=== PATIENT | male | born 1980 | race Hispanic/Latino ===

== ENCOUNTER 2018-03-15 04:26 | Emergency (ER) | payer OTHER ==
[2018-03-15] MEDS ORDERED: MAGNE/ALUM HYDROXD 30 ML UCUP ONE (04:47)
--- NOTE | 2018-03-15 05:07 | EDPHYS ---
Physician Documentation [facility] Name: Blake Howard Age: 37 yrs Sex: Male : 1980 Arrival Date: 03/15/2018 Time: 04:33 Bed 6 Private MD: Russell Maldonado R ED Physician Constantin Boateng HPI: 03/15 05:04 This 37 yrs old Male presents to ER via Ambulatory with complaints of gs Epigastric Pain. 05:04 The patient presents with abdominal pain in the epigastric area. Onset: The gs symptoms/episode began/occurred yesterday, at 10:00. The symptoms do not radiate. Associated signs and symptoms: Pertinent positives: diarrhea, Pertinent negatives: nausea and vomiting, chest pain. The symptoms are described as crampy. Modifying factors: The symptoms are alleviated by nothing, the symptoms are aggravated by nothing. Severity of pain: At its worst the pain was moderate in the emergency department the pain has improved markedly, is a 3 / 10. The patient has experienced similar episodes in the past, a few times. The patient has not recently seen a physician. Historical: - Allergies: 04:54 No Known Allergies; ea - Home Meds: 04:54 None [Active]; ea - PMHx: 04:54 None; ea - PSHx: 04:54 acl repair; ea - Immunization history:: Adult Immunizations up to date. - Social history:: Smoking status: Patient/guardian denies using tobacco. - Ebola Screening: : No symptoms or risks identified at this time. ROS: 05:04 All other systems are negative. gs Exam: 05:04 Head/Face: Normocephalic, atraumatic. Eyes: Pupils equal round and reactive to light, gs extra-ocular motions intact. Lids and lashes normal. Conjunctiva and sclera are non-icteric and not injected. Cornea within normal limits. Periorbital areas with no swelling, redness, or edema. ENT: Nares patent. No nasal discharge, no septal abnormalities noted. Tympanic membranes are normal and external auditory canals are clear. Oropharynx with no redness, swelling, or masses, exudates, or evidence of obstruction, uvula midline. Mucous membranes moist. Neck: Trachea midline, no thyromegaly or masses palpated, and no cervical lymphadenopathy. Supple, full range of motion without nuchal rigidity, or vertebral point tenderness. No Meningismus. Chest/axilla: Normal chest wall appearance and motion. Nontender with no deformity. No lesions are appreciated. Cardiovascular: Regular rate and rhythm with a normal S1 and S2. No gallops, murmurs, or rubs. Normal PMI, no JVD. No pulse deficits. Respiratory: Lungs have equal breath sounds bilaterally, clear to auscultation and percussion. No rales, rhonchi or wheezes noted. No increased work of breathing, no retractions or nasal flaring. Back: No spinal tenderness. No costovertebral tenderness. Full range of motion. Skin: Warm, dry with normal turgor. Normal color with no rashes, no lesions, and no evidence of cellulitis. MS/ Extremity: Pulses equal, no cyanosis. Neurovascular intact. Full, normal range of motion. Neuro: Awake and alert, GCS 15, oriented to person, place, time, and situation. Cranial nerves II-XII grossly intact. Motor strength 5/5 in all extremities. Sensory grossly intact. Cerebellar exam normal. Normal gait. 05:04 Constitutional: The patient appears alert, awake. 05:04 Abdomen/GI: Palpation: mild abdominal tenderness, in the epigastric area, rebound tenderness, is not appreciated. Vital Signs: 04:40 BP 127 / 39; Pulse 90; Resp 18; Temp 98(O); Pulse Ox 99% on R/A; Weight 92.99 kg; ea Height 5 ft. 8 in. (172.72 cm); Pain 7/10; 04:45 BP 119 / 77; Pulse 88; Resp 18; Pulse Ox 99% on R/A; ea 05:10 BP 120 / 68; Pulse 80; Resp 18 S; Temp 98(O); Pulse Ox 99% on R/A; Pain 3/10; ea 04:40 Body Mass Index 31.17 (92.99 kg, 172.72 cm) ea MDM: 04:44 Patient medically screened. gs 05:04 Differential diagnosis: gastritis, gastroesophageal reflux disease, non-specific abd gs pain. Data reviewed: vital signs, nurses notes. Administered Medications: 04:48 Drug: Maalox Suspension (200 mg-200 mg-20 mg/5 mL) 30 ml Route: PO; ea 05:10 Follow up: Response: No adverse reaction; Marked relief of symptoms ea Disposition: 03/15/18 05:06 Discharged to Home. Impression: Epigastric pain. - Condition is Stable. - Discharge Instructions: Abdominal Pain, Adult. - Prescriptions for Pepcid 20 mg Oral Tablet - take 1 tablet by ORAL route every 12 hours for 10 days; 60 tablet. - Medication Reconciliation Form, Thank You Letter, Antibiotic Education, Prescription Opioid Use form. - Follow up: Marisabel Hernandez MD; When: 2 - 3 days; Reason: Re-evaluation by your physician. Signatures: Louisa Esquivel RN RN ea Starr, Gregory, MD MD gs Corrections: (The following items were deleted from the chart) :18 05:06 03/15/2018 05:06 Discharged to Home. Impression: Epigastric pain. Condition is ea Stable. Forms are Medication Reconciliation Form, Thank You Letter, Antibiotic Education, Prescription Opioid Use. Follow up: Marisabel Hernandez; When: 2 - 3 days; Reason: Re-evaluation by your physician. gs
--- NOTE | 2018-03-15 05:07 | ER ---
Nurse's Notes [facility] Name: Blake Howard Age: 37 yrs Sex: Male : 1980 Arrival Date: 03/15/2018 Time: 04:33 Bed 6 Private MD: Russell Maldonado R Diagnosis: Epigastric pain Presentation: 03/15 04:40 Presenting complaint: Patient states: Reports yesterday he started having nausea, ea vomiting, diarrhea and epigastric pain. Transition of care: patient was not received from another setting of care. Onset of symptoms was March 15, 2018. Risk Assessment: Do you want to hurt yourself or someone else? Patient reports no desire to harm self or others. Initial Sepsis Screen: Does the patient meet any 2 criteria? No. Patient's initial sepsis screen is negative. Does the patient have a suspected source of infection? No. Patient's initial sepsis screen is negative. Care prior to arrival: None. 04:40 Method Of Arrival: Ambulatory ea 04:40 Acuity: IRENA 4 ea Triage Assessment: 04:40 General: Appears in no apparent distress. Behavior is calm, cooperative, appropriate ea for age. Pain: Complains of pain in epigastric area Pain does not radiate. Pain currently is 6 out of 10 on a pain scale. Quality of pain is described as dull. EENT: No signs and/or symptoms were reported regarding the EENT system. Neuro: Level of Consciousness is awake, alert, obeys commands, Oriented to person, place, time, situation. Cardiovascular: Heart tones S1 S2 present Patient's skin is warm and dry. Respiratory: Airway is patent Respiratory effort is even, unlabored, Respiratory pattern is regular, symmetrical, Breath sounds are clear bilaterally. GI: Abdomen is non-distended, Bowel sounds present X 4 quads. GI: Reports diarrhea, epigastric pain, nausea. : No signs and/or symptoms were reported regarding the genitourinary system. Derm: Skin is pink, warm \T\ dry. Musculoskeletal: No signs and/or symptoms reported regarding the musculoskeletal system. Historical: - Allergies: 04:54 No Known Allergies; ea - Home Meds: 04:54 None [Active]; ea - PMHx: 04:54 None; ea - PSHx: 04:54 acl repair; ea - Immunization history:: Adult Immunizations up to date. - Social history:: Smoking status: Patient/guardian denies using tobacco. - Ebola Screening: : No symptoms or risks identified at this time. Screenin:58 Abuse screen: Denies threats or abuse. Nutritional screening: No deficits noted. ea Tuberculosis screening: No symptoms or risk factors identified. Fall Risk None identified. Assessment: 05:16 Reassessment: Patient and/or family updated on plan of care and expected duration. Pain ea level reassessed. Patient is alert, oriented x 3, equal unlabored respirations, skin warm/dry/pink. Discharge instruction given to patient, verbalized the understanding of instruction. Patient states feeling better. Patient states symptoms have improved. Vital Signs: 04:40 BP 127 / 39; Pulse 90; Resp 18; Temp 98(O); Pulse Ox 99% on R/A; Weight 92.99 kg; ea Height 5 ft. 8 in. (172.72 cm); Pain 7/10; 04:45 BP 119 / 77; Pulse 88; Resp 18; Pulse Ox 99% on R/A; ea 05:10 BP 120 / 68; Pulse 80; Resp 18 S; Temp 98(O); Pulse Ox 99% on R/A; Pain 3/10; ea 04:40 Body Mass Index 31.17 (92.99 kg, 172.72 cm) ea ED Course: 04:33 Patient arrived in ED. am2 04:33 Russell Maldonado MD is Private Physician. am2 04:40 Patient has correct armband on for positive identification. Bed in low position. Call ea light in reach. Side rails up X 1. 04:40 Arm band placed on right wrist. Patient placed in an exam room, on a stretcher, on ea pulse oximetry. 04:44 Constantin Boateng MD is Attending Physician. gs 04:44 Louisa Esquivel RN is Primary Nurse. ea 04:53 Triage completed. ea 05:06 Marisabel Hernandez MD is Referral Physician. gs 05:12 No provider procedures requiring assistance completed. Patient did not have IV access ea during this emergency room visit. Administered Medications: 04:48 Drug: Maalox Suspension (200 mg-200 mg-20 mg/5 mL) 30 ml Route: PO; ea 05:10 Follow up: Response: No adverse reaction; Marked relief of symptoms ea Outcome: 05:06 Discharge ordered by . gs 05:16 Condition: improved ea 05:16 Discharge instructions given to patient, Instructed on discharge instructions, follow up and referral plans. medication usage, Demonstrated understanding of instructions, follow-up care, medications, Prescriptions given X 1. 05:17 Discharged to home ambulatory. ea 05:18 Patient left the ED. ea Signatures: Jessica Oseguera am2 Louisa Esquivel RN RN ea Starr, Gregory, MD MD
== END 2018-03-15 05:18 | disposition home or self-care (01) ==
LOC: ER 04:26
DX: R10.13 Epigastric pain (principal)
CPT/HCPCS: 99283

== ENCOUNTER 2021-03-29 20:30 | Emergency (ER) | payer OTHER, SELFPAY ==
--- NOTE | 2021-03-29 22:48 | EDPHYS ---
Physician Documentation [facility] Name: Blake Howard Age: 40 yrs Sex: Male : 1980 Arrival Date: 03/29/2021 Time: 20:33 Bed 13 Private MD: Russell Maldonado R ED Physician Rufino Garrido HPI: 03/29 21:25 This 40 yrs old Male presents to ER via Ambulatory with complaints of COVID ronit TEST. 21:25 The patient has shortness of breath at rest. Onset: The symptoms/episode began/occurred ronit 4 day(s) ago. Duration: The symptoms are continuous, and are steadily getting worse. The patient's shortness of breath has no apparent modifying factors. Associated signs and symptoms: The patient has no apparent associated signs or symptoms. Severity of symptoms: At their worst the symptoms were mild in the emergency department the symptoms are unchanged. The patient has not experienced similar symptoms in the past. Historical: - Allergies: 21:57 No Known Allergies; jm8 - Home Meds: 21:57 None [Active]; jm8 - PMHx: 21:57 None; jm8 - PSHx: 21:57 None; jm8 - Immunization history:: Adult Immunizations up to date. - Family history:: not pertinent. - Social history:: Smoking status: unknown. ROS: 21:26 Constitutional: Negative for fever, chills, and weight loss, Eyes: Negative for injury, ronit pain, redness, and discharge, ENT: Negative for injury, pain, and discharge, Neck: Negative for injury, pain, and swelling, Cardiovascular: Negative for chest pain, palpitations, and edema, Abdomen/GI: Negative for abdominal pain, nausea, vomiting, diarrhea, and constipation, Back: Negative for injury and pain, : Negative for injury, bleeding, discharge, and swelling, MS/Extremity: Negative for injury and deformity, Skin: Negative for injury, rash, and discoloration, Neuro: Negative for headache, weakness, numbness, tingling, and seizure, Psych: Negative for depression, anxiety, suicide ideation, homicidal ideation, and hallucinations, Allergy/Immunology: Negative for hives, rash, and allergies, Endocrine: Negative for neck swelling, polydipsia, polyuria, polyphagia, and marked weight changes, Hematologic/Lymphatic: Negative for swollen nodes, abnormal bleeding, and unusual bruising. 21:26 Respiratory: Positive for shortness of breath, at rest. Exam: 21:26 Constitutional: This is a well developed, well nourished patient who is awake, alert, ronit and in no acute distress. Head/Face: Normocephalic, atraumatic. Eyes: Pupils equal round and reactive to light, extra-ocular motions intact. Lids and lashes normal. Conjunctiva and sclera are non-icteric and not injected. Cornea within normal limits. Periorbital areas with no swelling, redness, or edema. ENT: Nares patent. No nasal discharge, no septal abnormalities noted. Tympanic membranes are normal and external auditory canals are clear. Oropharynx with no redness, swelling, or masses, exudates, or evidence of obstruction, uvula midline. Mucous membranes moist. Neck: Trachea midline, no thyromegaly or masses palpated, and no cervical lymphadenopathy. Supple, full range of motion without nuchal rigidity, or vertebral point tenderness. No Meningismus. Chest/axilla: Normal chest wall appearance and motion. Nontender with no deformity. No lesions are appreciated. Cardiovascular: Regular rate and rhythm with a normal S1 and S2. No gallops, murmurs, or rubs. Normal PMI, no JVD. No pulse deficits. Respiratory: Lungs have equal breath sounds bilaterally, clear to auscultation and percussion. No rales, rhonchi or wheezes noted. No increased work of breathing, no retractions or nasal flaring. Abdomen/GI: Soft, non-tender, with normal bowel sounds. No distension or tympany. No guarding or rebound. No evidence of tenderness throughout. Back: No spinal tenderness. No costovertebral tenderness. Full range of motion. Male : Normal genitalia with no discharge or lesions. Skin: Warm, dry with normal turgor. Normal color with no rashes, no lesions, and no evidence of cellulitis. MS/ Extremity: Pulses equal, no cyanosis. Neurovascular intact. Full, normal range of motion. Neuro: Awake and alert, GCS 15, oriented to person, place, time, and situation. Cranial nerves II-XII grossly intact. Motor strength 5/5 in all extremities. Sensory grossly intact. Cerebellar exam normal. Normal gait. Psych: Awake, alert, with orientation to person, place and time. Behavior, mood, and affect are within normal limits. 21:26 Musculoskeletal/extremity: DVT Exam: No signs of deep vein thrombosis. no pain, no swelling, no tenderness, negative Homans' sign noted on exam, no appreciated bluish discoloration, no erythema, no increased warmth. Vital Signs: 20:39 BP 148 / 90; Pulse 87; Resp 18; Temp 98.9; Pulse Ox 100% ; Weight 90.26 kg; Height 5 ak2 ft. 5 in. (165.10 cm); 20:39 Body Mass Index 33.11 (90.26 kg, 165.10 cm) ak2 MDM: 20:43 Patient medically screened. ronit 21:27 Differential diagnosis: CHF exacerbation, Chronic Obstructive Pulmonary Disease ronit pulmonary edema. Antibiotic administration: The patient is discharged and will get outpatient antibiotics, Zithromax. The patient's Wells Deep Vein Thrombosis Score was calculated as follows: Total Score: 0-2 Pts- Low Risk. The patient's pulmonary embolism risk score was calculated as follows: Total Score: 0-2 points. This patient was found to be at low risk for a pulmonary embolism by using the Well's assessment criteria. Immunization status:. Data reviewed: vital signs, nurses notes, lab test result(s), radiologic studies, plain films. Data interpreted: monitoring coordinator: rate is 87 beats/min, rhythm is regular, Pulse oximetry: on room air is 100 %. Test interpretation: by ED physician or midlevel provider: plain radiologic studies. Counseling: I had a detailed discussion with the patient and/or guardian regarding: the historical points, exam findings, and any diagnostic results supporting the discharge/admit diagnosis, lab results, radiology results, the need for outpatient follow up, for definitive care, a family practitioner. 03/29 22:19 Order name: SARS-COV-2 RT PCR; Complete Time: 22:45 EDMS 03/29 21:25 Order name: Chest Single View XRAY ronit Administered Medications: No medications were administered Disposition: 03/29/21 22:47 Discharged to Home. Impression: Dyspnea, Contact with and (suspected) exposure to other viral communicable diseases - covid. - Condition is Stable. - Discharge Instructions: Shortness of Breath, Shortness of Breath, [id number], Aspirin and Your Heart, COVID-19. - Prescriptions for Zithromax Z- Adeel 250 mg Oral Tablet - take 1 tablet by ORAL route as directed for 5 days Day 1 - take two (2) tablets one time. Day 2, 3, 4 , 5 take one (1) tablet once daily.; 6 tablet. Medrol (Adeel) 4 mg Oral Tablets, Dose Pack - take 1 tablet by ORAL route as directed - follow package instructions; 1 packet. - Medication Reconciliation Form, Thank You Letter, Antibiotic Education, Prescription Opioid Use form. - Follow up: Russell Maldonado MD; When: 2 - 3 days; Reason: Recheck today's complaints, Continuance of care, Re-evaluation by your physician. - Problem is new. - Symptoms have improved. Signatures: Dispatcher [employer] [facility] Rufino Garrido MD MD cha Munoz, Edgar, RN RN em Teo Muniz RN RN jm8 Corrections: (The following items were deleted from the chart) 21:21 20:46 CORONAVIRUS+MR.LAB.BRZ ordered. [facility] 23:02 22:47 03/29/2021 22:47 Discharged to Home. Impression: Dyspnea; Contact with and em (suspected) exposure to other viral communicable diseases - covid. Condition is Stable. Forms are Medication Reconciliation Form, Thank You Letter, Antibiotic Education, Prescription Opioid Use. Follow up: Russell Maldonado; When: 2 - 3 days; Reason: Recheck today's complaints, Continuance of care, Re-evaluation by your physician. Problem is new. Symptoms have improved. ronit
--- NOTE | 2021-03-29 22:48 | ER ---
Nurse's Notes [facility] Name: Blake Howard Age: 40 yrs Sex: Male : 1980 Arrival Date: 03/29/2021 Time: 20:33 Bed 13 Private MD: Russell Maldonado R Diagnosis: Dyspnea;Contact with and (suspected) exposure to other viral communicable diseases-covid Presentation: 03/29 20:39 Chief complaint: Patient states: exposure to covid x4. Coronavirus screen: Client ak2 denies travel out of the [place] in the last 14 days. At this time, the client does not indicate any symptoms associated with coronavirus-19. Ebola Screen: Patient negative for fever greater than or equal to 101.5 degrees Fahrenheit, and additional compatible Ebola Virus Disease symptoms Patient denies exposure to infectious person. Patient denies travel to an Ebola-affected area in the 21 days before illness onset. No symptoms or risks identified at this time. Initial Sepsis Screen: Does the patient meet any 2 criteria? No. Patient's initial sepsis screen is negative. Does the patient have a suspected source of infection? No. Patient's initial sepsis screen is negative. Risk Assessment: Do you want to hurt yourself or someone else? Patient reports no desire to harm self or others. Onset of symptoms. 20:39 Method Of Arrival: Ambulatory ak2 20:39 Acuity: IRENA 4 ak2 Triage Assessment: 20:39 General: Appears in no apparent distress. Behavior is calm, cooperative. Pain: Denies ak2 pain. Historical: - Allergies: 21:57 No Known Allergies; jm8 - Home Meds: 21:57 None [Active]; jm8 - PMHx: 21:57 None; jm8 - PSHx: 21:57 None; jm8 - Immunization history:: Adult Immunizations up to date. - Family history:: not pertinent. - Social history:: Smoking status: unknown. Screenin:56 Abuse screen: Denies threats or abuse. Denies injuries from another. Nutritional jm8 screening: No deficits noted. Tuberculosis screening: No symptoms or risk factors identified. Fall Risk None identified. Assessment: 21:55 General: Appears in no apparent distress. comfortable, Behavior is calm, cooperative, jm8 appropriate for age. Pain: Denies pain. Neuro: No deficits noted. Level of Consciousness is awake, alert, obeys commands, Oriented to person, place, time. Cardiovascular: No deficits noted. Respiratory: Reports shortness of breath on exertion Airway is patent Trachea midline Respiratory effort is even, unlabored, Respiratory pattern is regular, symmetrical. GI: No deficits noted. No signs and/or symptoms were reported involving the gastrointestinal system. : No deficits noted. No signs and/or symptoms were reported regarding the genitourinary system. EENT: No deficits noted. No signs and/or symptoms were reported regarding the EENT system. Derm: No deficits noted. No signs and/or symptoms reported regarding the dermatologic system. Musculoskeletal: No deficits noted. No signs and/or symptoms reported regarding the musculoskeletal system. Vital Signs: 20:39 BP 148 / 90; Pulse 87; Resp 18; Temp 98.9; Pulse Ox 100% ; Weight 90.26 kg; Height 5 ak2 ft. 5 in. (165.10 cm); 20:39 Body Mass Index 33.11 (90.26 kg, 165.10 cm) ak2 ED Course: 20:33 Patient arrived in ED. am4 20:33 Russlel Maldonado MD is Private Physician. am4 20:41 Triage completed. ak2 20:43 Rufino Garrido MD is Attending Physician. ronit 21:56 Patient has correct armband on for positive identification. Side rails up X2. Bed in jm8 low position. Call light in reach. 21:57 Arm band placed on right wrist. jm8 22:01 Chest Single View XRAY In Process Unspecified. EDMS 22:46 Russell Maldonado MD is Referral Physician. ronit 23:02 No provider procedures requiring assistance completed. Patient did not have IV access em during this emergency room visit. Administered Medications: No medications were administered Outcome: 22:47 Discharge ordered by . ronit 23:02 Discharged to home ambulatory. em 23:02 Condition: stable 23:02 Discharge instructions given to patient, Instructed on discharge instructions, follow up and referral plans. medication usage, Demonstrated understanding of instructions, follow-up care, medications, Prescriptions given X 2. 23:02 Patient left the ED. em Signatures: Dispatcher [employer] [facility] Rufino Garrido MD MD cha Munoz, Edgar RN RN em Larisa Adhikari 4 Teo Muniz RN RN [facility] Bruce Milton ak2
[2021-03-29 23:09] VITALS: BP 148/90; TEMP 98.9; O2SAT 100
--- NOTE | 2021-03-30 09:33 | RAD REPORT ---
EXAM DESCRIPTION: RAD - Chest Single View - 03/29/2021 10:01 pm CLINICAL HISTORY: Cough;Dyspnea Chest pain. COMPARISON: Chest Pa And Lat (2 Views) dated 08/05/2017 FINDINGS: Portable technique limits examination quality. The lungs are grossly clear. The heart is normal in size. No displaced fractures. IMPRESSION: No acute intrathoracic process suspected.
== END 2021-03-29 23:02 | disposition home or self-care (01) ==
LOC: ER 20:30
DX: R06.00 Dyspnea, unspecified (principal); Z20.822 Contact with and (suspected) exposure to COVID-19
CPT/HCPCS: 71045; U0003; 99283

== ENCOUNTER 2021-12-12 13:22 | Observation (INO) | payer SELFPAY ==
--- OUTSIDE RECORDS SUMMARY | 2021-12-12 13:24 | XMS REPORT | Continuity of Care Document ---
:1980 Author Organization [facility] t Address [address] [place] [address] Care Team Providers Name Role Phone PCP, DOES NOT HAVE A Primary Care Physician Unavailable Nurse, Pob Immunization Attending Clinician Unavailable Adan Rivas DO Attending Clinician ADAN RIVAS Attending Clinician Unavailable Only, Test Attending Clinician Unavailable Gissel CABELLO Attending Clinician GISSEL Attending Clinician Unavailable Doctor Unassigned, Name Attending Clinician Unavailable Tressa ALMAGUER Attending Clinician Unavailable Problems This patient has no known problems. Allergies, Adverse Reactions, Alerts Allergy Allergy Status Severity Reaction(s) Onset Inactive Treating Comm ents Source Name Type Date Date Clinician NO KNOWN Drug Active Univers ALLERGIE Class ity of [facility] Social History Social Habit Start Date Stop Date Quantity Comments Source Exposure to Not sure [facility] SARS-CoV-2 (event) Medica l Branch Sex Assigned At [birth year] [facility] 00:00:00 00:00:00 [facility] Smoking Status Start Date Stop Date Source Unknown if ever smoked [facility] Medications Ordered Filled Start Stop Current Ordering Indication Dosage Frequency Signature Comments Components Source Medication Medication Date Date Medication? Clinician (SIG) Name Name azithromyci Yes 250mg Take 1 Cap Univers n 6-09 by mouth. ity of (ZITH[place] caps the Medical capsule first day, Branch then 1 daily for 4 more days.Total 5 days traMADOL 2010-0 Yes 50mg Take 1 Tab Uni vers (ULTRAM) 50 6-09 by mouth ity of mg tablet 00:00: every 6 [place] 00 (six) Medical hours as Branch needed for Pain. azithromyci 0 Yes 250mg Take 1 Cap Univers n 6-09 by mouth. ity of (ZITHROMAX[place] 250 [place] 00 caps the Medical capsule first day, Branch then 1 daily for 4 more days.Total 5 days traMADOL 0 Yes 50mg Take 1 Tab Uni vers (ULTRAM) 50 6-09 by mouth ity of mg tablet 00:00: every 6 [place] 00 (six) Medical hours as Branch needed for Pain. azithromyci 0 Yes 250mg Take 1 Cap Univers n 6-09 by mouth. ity of (ZITHROMAX[place]:00[place] 250 [place] 00 caps the Medical capsule first day, Branch then 1 daily for 4 more days.Total 5 days traMADOL 0 Yes 50mg Take 1 Tab Uni vers (ULTRAM) 50 6-09 by mouth ity of mg tablet 00:00: every 6 [place] 00 (six) Medical hours as Branch needed for Pain. PROMETHAZIN Yes Take one Un shade E 25 MG 1-14 half ity of ORAL TAB 00:00: tablet [place] 00 every 8 Medical hours as Branch needed for nausea/vom iting PROMETHAZIN Yes Take one Un shade E 25 MG 1-14 half ity of ORAL TAB 00:00: tablet [place] 00 every 8 Medical hours as Branch needed for nausea/vom iting PROMETHAZIN Yes Take one Un shade E 25 MG 1-14 half ity of ORAL TAB 00:00: tablet [place] 00 every 8 Medical hours as Branch needed for nausea/vom iting Immunizations Ordered Filled Immunization Date Status Comments [facility] e Immunization Name Name SARS-COV-2 COVID-19 2021-10-25 Completed Unive rsity of PFIZER VACCINE 00:00:00 [facility] SARS-COV-2 COVID-19 2021-01-30 Completed Unive rsity of PFIZER VACCINE 00:00:00 [facility] SARS-COV-2 COVID-19 2021-01-30 Completed Unive rsity of PFIZER VACCINE 00:00:00 [facility] SARS-COV-2 COVID-19 2021-01-30 Completed Unive rsity of PFIZER VACCINE 00:00:00 [facility] SARS-COV-2 COVID-19 2021-01-09 Completed Unive rsity of PFIZER VACCINE 00:00:00 [facility] SARS-COV-2 COVID-19 2021-01-09 Completed Unive rsity of PFIZER VACCINE 00:00:00 [facility] SARS-COV-2 COVID-19 2021-01-09 Completed Unive rsity of PFIZER VACCINE 00:00:00 [facility] Procedures Procedure Date / Time Performed Performing Clinician Sourc e SARS-COV-2 COVID-19 2021-10-25 21:52:06 Doctor Unassigned, No [facility] [place] VACCINE,0.3ML,IM Name [facility] (PFIZER) ASSIGNMENT OF BENEFITS 2021-09-05 21:10:09 Doctor Unassigned, No [facility] Encounters Start End Encounter Admission Attending Care Care Encounter Source Date/Time Date/Time Type Type Clinicians Facility Department ID 2021-10-25 2021-10-25 Imm/Inj Nurse, Adc Pob Immunization [facility] [id number] Univers 16:00:00 16:00:00 Visit Kali Rivas [id number] [facility] [id number] [facility] [id number] [place] [address] 2021-10-25 2021-10-25 Outpatient R RC [facility] [id number] Univers 16:00:00 15:50:26 KALI moon [facility] 2021-09-05 2021-09-05 Laboratory Only, Vince Test [facility] [id number] Univers 15:06:54 15:21:54 Only Pricilla Kirkland [id number] [facility] [id number] [facility] [id number] [address] 2021-09-05 2021-09-05 Outpatient R GISSEL [facility] [id number] Univers 14:30:00 14:30:00 PRICILLA moon of [facility] 2021-09-05 2021-09-05 Orders Doctor AURELIO [id number] [facility] 00:00:00 00:00:00 Only Unassigned, MATHIEU [id number] ity of [place] [facility] [id number] [place] [id number] [address] 2021-01-09 2021-01-09 Outpatient Nilson ALMAGUER [facility] [id number] [facility] 16:10:00 15:55:10 ALEI moon [facility] Results This patient has no known results.
[2021-12-12] MEDS ORDERED: NA CHLORIDE 0.9% 1,000 ML ONE (14:17)
[2021-12-12 14:23] LABS: Absolute Lymphocytes (CBC) 1.7 K/uL (0.7-4.9); Hematocrit 41.1 % (39.6-49.0); Lymphocytes % 31.6 % (15.3-44.8); MPV 8.1 fL (7.6-11.3); RBC Red Blood Cell Count 4.73 M/uL (4.33-5.43)
--- NOTE | 2021-12-12 14:31 | ER ---
Nurse's Notes [facility] Name: Blake Howard Age: 41 yrs Sex: Male : 1980 Arrival Date: 12/12/2021 Time: 13:24 Bed DIS4 Private MD: Diagnosis: Unspecified acute appendicitis Presentation: 12/12 14:00 Chief complaint: Patient states: he was sent by his PCP for appendicitis. Patient was ap3 sent over after CT imaging confirmed. Patient presents with 22g IV in place to the left AC. patient denies pain at this time. Coronavirus screen: At this time, the client does not indicate any symptoms associated with coronavirus-19. Ebola Screen: No symptoms or risks identified at this time. Initial Sepsis Screen: Does the patient meet any 2 criteria? No. Patient's initial sepsis screen is negative. Does the patient have a suspected source of infection? No. Patient's initial sepsis screen is negative. Risk Assessment: Do you want to hurt yourself or someone else? Patient reports no desire to harm self or others. Onset of symptoms was December 12, 2021. 14:00 Method Of Arrival: Ambulatory ap3 14:00 Acuity: IRENA 3 ap3 Triage Assessment: 14:02 General: Appears in no apparent distress. comfortable, Behavior is calm, cooperative, ap3 appropriate for age. Pain: Complains of pain in right lower quadrant. Neuro: Level of Consciousness is awake, alert, obeys commands, Oriented to person, place, time, situation, Gait is steady, Speech is normal. Cardiovascular: Patient's skin is warm and dry. Respiratory: Airway is patent Respiratory effort is even, unlabored. Historical: - Allergies: 14:02 No Known Allergies; ap3 - Home Meds: 14:02 None [Active]; ap3 - PMHx: 14:02 None; ap3 - Immunization history:: Client reports receiving the 2nd dose of the Covid vaccine, Flu vaccine is not up to date. - Social history:: Smoking status: Patient denies any tobacco usage or history of. Patient uses alcohol, occasionally. Screenin:03 Abuse screen: Denies threats or abuse. Nutritional screening: No deficits noted. ap3 Tuberculosis screening: No symptoms or risk factors identified. 14:16 Fall Risk None identified. ap3 Vital Signs: 14:00 BP 136 / 75; Pulse 68; Resp 16; Temp 97.5; Pulse Ox 100% ; Weight 91.63 kg; Height 5 ap3 ft. 8 in. (172.72 cm); 14:00 Body Mass Index 30.71 (91.63 kg, 172.72 cm) ap3 ED Course: 13:24 Patient arrived in ED. as 13:24 Annabelle Anthony F[facility]-C [facility]. kb 13:24 Laura Byrnes MD is Attending Physician. kb 14:02 Triage completed. ap3 14:03 Arm band placed on right wrist. ap3 14:10 Diet: Patient is NPO. ap3 14:10 Initial lab(s) drawn, by me, sent to lab. COVID swab sent to lab. IV is patent, is ap3 intact, with fluids infusing freely, with good blood return. 14:17 Patient has correct armband on for positive identification. Adult w/ patient. ap3 14:30 Elian Klein MD is Hospitalizing Provider. kb 15:00 No provider procedures requiring assistance completed. Patient admitted, IV remains in ss place. Administered Medications: 14:16 Drug: NS 0.9% 1000 ml Route: IV; Rate: 1000 ml; Site: left antecubital; ap3 15:00 Follow up: IV Status: Infusion continued upon admission ss 15:00 Not Given (admin by OR nursee): Cipro (ciprofloxacin) 400 mg 200 ml IVPB once over 60 ss mins 15:00 Not Given (ADMIN by OR nursee): Flagyl (metroNIDAZOLE) 500 mg 100 ml IVPB at 200 ml/hr ss once over 30 mins Outcome: 14:30 Decision to Hospitalize by Provider. kb 15:00 Admitted to OR accompanied by nurse, family with patient, Report called to MENDEL Blevins ss 15:00 Condition: stable 15:00 Instructed on the need for admit. 15:01 Patient left the ED. ss Signatures: Annabelle Anthony FNP-C FNP-Jina Pantoja Shelby, RN RN Jessica Vasquez RN RN ap3
--- NOTE | 2021-12-12 14:31 | EDPHYS ---
Physician Documentation [facility] Name: Blake Howard Age: 41 yrs Sex: Male : 1980 Arrival Date: 12/12/2021 Time: 13:24 Bed DIS4 Private MD: ED Physician Laura Byrnes HPI: 12/12 14:43 This 41 yrs old Male presents to ER via Ambulatory with complaints of kb appendicitis, ct+. 14:44 The patient presents with abdominal pain right lower quadrant. Onset: The kb symptoms/episode began/occurred 2 week(s) ago. The symptoms do not radiate. Associated signs and symptoms: none. The symptoms are described as constant. Modifying factors: The symptoms are alleviated by nothing, the symptoms are aggravated by nothing. Severity of pain: At its worst the pain was moderate in the emergency department the pain is unchanged. The patient has not experienced similar symptoms in the past. The patient has not recently seen a physician. Pt reports RLQ pain that was intermittent when it started 2 weeks ago and became constant on Saturday. Went to PCP today and was sent for Stat CT. Sent here from CT for appendicitis. Historical: - Allergies: 14:02 No Known Allergies; ap3 - Home Meds: 14:02 None [Active]; ap3 - PMHx: 14:02 None; ap3 - Immunization history:: Client reports receiving the 2nd dose of the Covid vaccine, Flu vaccine is not up to date. - Social history:: Smoking status: Patient denies any tobacco usage or history of. Patient uses alcohol, occasionally. ROS: 14:42 Constitutional: Negative for fever, chills, and weight loss. kb 14:42 Abdomen/GI: Positive for abdominal pain. 14:42 All other systems are negative. Exam: 14:42 Constitutional: This is a well developed, well nourished patient who is awake, alert, kb and in no acute distress. Head/Face: Normocephalic, atraumatic. ENT: Moist Mucous membranes Cardiovascular: Regular rate and rhythm with a normal S1 and S2. No gallops, murmurs, or rubs. No pulse deficits. Respiratory: Respirations even and unlabored. No increased work of breathing. Talking in full sentences Skin: Warm, dry with normal turgor. Normal color. MS/ Extremity: Pulses equal, no cyanosis. Neurovascular intact. Full, normal range of motion. Neuro: Awake and alert, GCS 15, oriented to person, place, time, and situation. Moves all extremities. Normal gait. Psych: Awake, alert, with orientation to person, place and time. Behavior, mood, and affect are within normal limits. 14:42 Abdomen/GI: Inspection: abdomen appears normal, Bowel sounds: normal, Palpation: moderate abdominal tenderness, in the right lower quadrant. Vital Signs: 14:00 BP 136 / 75; Pulse 68; Resp 16; Temp 97.5; Pulse Ox 100% ; Weight 91.63 kg; Height 5 ap3 ft. 8 in. (172.72 cm); 14:00 Body Mass Index 30.71 (91.63 kg, 172.72 cm) ap3 MDM: 13:24 Patient medically screened. kb 14:29 Data reviewed: vital signs, nurses notes. Data interpreted: Pulse oximetry: on room air kb is 100 %. Interpretation: normal. Counseling: I had a detailed discussion with the patient and/or guardian regarding: the historical points, exam findings, and any diagnostic results supporting the discharge/admit diagnosis, lab results, radiology results, the need for further work-up and treatment in the hospital. Physician consultation: Elian Klein MD was contacted at 14:30, regarding admission, to the telemetry unit. patient's condition, and will see patient in OR. 12/12 13:24 Order name: Basic Metabolic Panel kb 12/12 13:24 Order name: CBC with Diff; Complete Time: 14:25 kb 12/12 13:24 Order name: Hepatic Function; Complete Time: 14:42 kb 12/12 13:24 Order name: Lipase; Complete Time: 14:42 kb 12/12 13:25 Order name: Basic Metabolic Panel; Complete Time: 14:42 EDMS 12/12 13:26 Order name: COVID-19 SARS RT PCR (Document "Date of Onset" if Symptomatic) kb 12/12 13:24 Order name: IV Saline Lock; Complete Time: 14:10 kb 12/12 13:24 Order name: Labs collected and sent; Complete Time: 14:10 kb 12/12 13:25 Order name: NPO; Complete Time: 14:04 kb Administered Medications: 14:16 Drug: NS 0.9% 1000 ml Route: IV; Rate: 1000 ml; Site: left antecubital; ap3 15:00 Follow up: IV Status: Infusion continued upon admission ss 15:00 Not Given (admin by OR nursee): Cipro (ciprofloxacin) 400 mg 200 ml IVPB once over 60 ss mins 15:00 Not Given (ADMIN by OR nursee): Flagyl (metroNIDAZOLE) 500 mg 100 ml IVPB at 200 ml/hr ss once over 30 mins Disposition Summary: 12/12/21 14:30 Hospitalization Ordered Hospitalization Status: Observation kb Provider: Elian Klein Location: Telemetry/MedSurg (observation) kb Condition: Stable kb Problem: new kb Symptoms: are unchanged kb Bed/Room Type: Standard kb Room Assignment: kb Diagnosis - Unspecified acute appendicitis kb Forms: - Medication Reconciliation Form kb - SBAR form kb Signatures: Dispatcher [employer] Annabelle Dale FNP-C FNP-Ckb Prokisch, Amanda, RN RN ap3 Zoila Nation RN
[2021-12-12 14:39] LABS: Albumin 3.7 g/dL (3.4-5.0); Bilirubin Direct 0.2 mg/dL (0-0.2); Bilirubin Total 1.2 mg/dL (0.2-1.0); Potassium 3.7 mmol/L (3.5-5.1); Protein, Total 7.7 g/dL (6.4-8.2)
[2021-12-12] MEDS ORDERED: CIPROFLOXACIN 400mg IV 400 MG/200 ML BAG IV ONE (14:55)
[2021-12-12] MEDS ORDERED: METRONIDAZOLE 500mg IVPB 500 MG/100 ML BAG IV ONE (14:55)
[2021-12-12] MEDS ORDERED: propofoL 200 MG/20 ML VIAL IV ONE (15:18)
[2021-12-12] MEDS ORDERED: MIDAZOLAM HCL 2 MG/2 ML INJ ONE (15:19)
[2021-12-12] MEDS ORDERED: FENTANYL CITR 100 MCG/2 ML ONE (15:19)
[2021-12-12] MEDS ORDERED: GLYCOPYRROLATE 0.2 MG/ML SYR ONE (15:20)
[2021-12-12] MEDS ORDERED: NEOSTIGMINE 1 MG/ML -5 ML ONE (15:20)
[2021-12-12] MEDS ORDERED: ONDANSETRON 4 MG/2 ML VIAL ONE (15:20)
[2021-12-12] MEDS ORDERED: LIDOCAINE 2% MPF 5 ML VIAL ONE (15:20)
[2021-12-12] MEDS ORDERED: ROCURONIUM 50 MG/5 ML VIAL IV ONE (15:21)
[2021-12-12] MEDS ORDERED: LIDOCAINE 1% MPF 5 ML VIAL ONE (15:33)
[2021-12-12] MEDS ORDERED: EPHEDRINE SULF 50 MG/ML VIAL ONE (15:55)
[2021-12-12] MEDS ORDERED: ONDANSETRON 4 MG/2 ML VIAL IV PRN ×2 (16:12→16:25)
[2021-12-12] MEDS ORDERED: MORPHINE 4 MG/ML SYR IV PRN (16:12)
--- NOTE | 2021-12-12 16:12 | P.OP ---
Fur Finisher Tailor: Lyssa TORRES Preoperative diagnosis: Acute Appendicitis Postoperative diagnosis: Same Primary procedure: Lap Appy Anesthesia: General Estimated blood loss: min Specimen: Appy Findings: as above Complications: None Transferred to: Recovery Room Condition: Good
[2021-12-12] MEDS: MEPERIDINE HCL 25 MG/ML SYR ONE ×2 (16:22→16:37)
[2021-12-12] MEDS ORDERED: KETOROLAC 30 MG/ML INJ ONE (16:24)
[2021-12-12] MEDS ORDERED: HYDROMORPHONE HCL 1 MG/ML INJ IV PRN (16:25)
[2021-12-12] MEDS ORDERED: HYDROMORPHONE HCL 1 MG/ML INJ ONE (16:41)
[2021-12-12] MEDS ORDERED: NA CHLORIDE 0.9% 500 ML ONE (16:42)
--- NOTE | 2021-12-12 17:59 | PREOPHP ---
Date of Admission: 12/12/2021 Chief Complaint: Abdominal pain. History Of Present Illness: The patient is a 41-year-old gentleman, who had right lower quadrant abd ominal pain approximately 2 weeks ago and treated himself with antibiotics that he got from his frien ds. He denies any nausea, vomiting, or anorexia. No diarrhea or constipation. No dysuria or hematu ramirez. No sore throat, runny nose, cough, headaches, or dizziness. No chest pain. No fever or chills . No anorexia. The patient states that the pain went away after he took the antibiotics, but it cam e back 2 days ago and he went to see his primary care physician as an outpatient. CT scan done, [facility] showed acute appendicitis, uncomplicated. Therefore, the patient was admitted for IV antibiotics a nd an appendectomy. Review of Systems: Otherwise unremarkable Past Medical History: Negative. Past Surgical History: Left knee surgery. Allergies: NO ALLERGIES. Social History: The patient denies smoking. Drinks occasionally. Family History: Noncontributory. Physical Examination: Vital Signs: Stable, afebrile. General: Awake, alert, and oriented x3. Head and neck: Cranial nerves 2 through 12 are grossly within normal limits. No neck masses. No JV D. Throat clear. Neck is supple. Chest: Clear. Heart: S1, S2. Abdomen: Soft, nondistended. Positive bowel sounds. Positive right lower quadrant tenderness with rebound. No rigidity or guarding. Extremity: Adequately perfused. Nontender. Neuro: Nonfocal. Laboratory Data: White count is normal. Electrolytes reviewed. The CT of the abdomen and pelvis re viewed consistent with acute appendicitis. Assessment: Acute appendicitis. Plan: Admit, n.p.o., IV fluid, IV antibiotic, to the OR for lap appy possible open. The patient und erstands the risks, benefits, and alternatives and agrees to procedure. /MODL Voice ID: [id number]
[2021-12-12] MEDS: NA CHLORIDE 0.9% 1,000 ML IV SCH (18:34)
--- NOTE | 2021-12-12 18:38 | OP ---
Date of Procedure: 12/12/2021 Surgeon: Elian Klein MD Pulp Tester: BRIAN Whitney. Preoperative Diagnosis: Acute appendicitis. Postoperative Diagnosis: Acute appendicitis. Procedure: Laparoscopic appendectomy. Estimated Blood Loss: Minimal. Specimen: Appendix. Finding: As above. Anesthesia: General. Complications: None. Disposition: The patient tolerated the procedure in stable condition and taken to Recovery in good g eneral condition. Procedure In Detail: The patient was brought to the OR and placed in supine position. General anest hesia begun. The patient was prepped and draped in usual sterile fashion. Marcaine 0.5% was infiltr ated locally. Then, a 15 blade was used to make a 1 cm supraumbilical midline incision. Subcutaneou s tissue divided. Fascia identified, divided. A #1 Vicryl stay suture was placed. Peritoneal cavit y was entered with sharp and blunt dissection. A 12 mm trocar placed into the peritoneal cavity unde r direct vision. Pneumoperitoneum was established. Then, two 5 mm trocars were placed, 1 in the lef t lower quadrant and 1 in the suprapubic region. Laparoscopy revealed acute suppurative appendicitis with some adhesions. These adhesions taken down with the LigaSure and the base of the appendix and mesoappendix were clearly identified. Endo-DEMI stapling device used to divide both structures. Mini mal oozing noted from the staple line and this was easily controlled with vascular clips. Appendix r etrieved through the umbilicus via an EndoCatch bag and then pneumoperitoneum reestablished and then the right lower quadrant irrigated. Effluent clear. No evidence of bleeding or bowel injury appreci ated. Subsequently, all trocars were removed under direct vision. Stay sutures were tied to each ot her to approximate the fascial defect. Subcutaneous wounds were irrigated. Bleeding controlled with cautery. A 3-0 chromic used to approximate the subcutaneous tissue and close the skin. Sterile tanisha ssing applied. The patient was awakened and taken to Recovery in good general condition. /MODL Voice ID: [id number] Report ID: [id number]
[2021-12-12 18:47] VITALS: BMI 30.7
[2021-12-12] MEDS ORDERED: PNEUMOCOCCAL VACCINE 0.5 ML IMVAC ONE (20:00)
[2021-12-12] MEDS: CIPROFLOXACIN 400mg IV 400 MG/200 ML BAG IV SCH (21:00)
[2021-12-12] MEDS: HYDROCODONE/APAP 7.5/325 MG TAB PO PRN (21:01)
[2021-12-13] MEDS: METRONIDAZOLE 500mg IVPB 500 MG/100 ML BAG IV SCH ×2 (00:43→09:00)
[2021-12-13] MEDS: NA CHLORIDE 0.9% 1,000 ML IV SCH ×2 (00:43→08:12)
[2021-12-13 04:29] LABS: Absolute Lymphocytes (CBC) 1.2 K/uL (0.7-4.9); Hematocrit 37.1 % (39.6-49.0); Lymphocytes % 19.6 % (15.3-44.8); MPV 7.9 fL (7.6-11.3); RBC Red Blood Cell Count 4.26 M/uL (4.33-5.43)
[2021-12-13] MEDS: HYDROCODONE/APAP 7.5/325 MG TAB PO PRN (05:25)
[2021-12-13] MEDS: CIPROFLOXACIN 400mg IV 400 MG/200 ML BAG IV SCH (09:00)
--- NOTE | 2021-12-13 12:35 | DS ---
Date of Discharge: 12/13/2021 Admitting Diagnosis: Acute appendicitis. Discharge Diagnosis: Acute appendicitis. Procedure Performed: Laparoscopic appendectomy. Hospital Course: The patient is a 41-year-old gentleman, came with right lower quadrant abdominal pa in. Workup revealed acute appendicitis. The patient went to the OR for laparoscopic appendectomy. Postoperatively, he is tolerating diet, ambulating, pain controlled on p.o. pain medications, afebril e. Therefore, the patient will be discharged to home. Disposition: Home. Condition: Stable. Discharge Instructions: Resume home medications and diet. Activity as tolerated. No heavy lifting. Remove outer dressing in a.m. Shower. Keep wound clean and dry. Keep Steri-Strips on at all time s. Follow up in my office in 1 week. Call for appointment. Tylenol No.3 one tablet p.o. q.4 p.r.n. pain, Augmentin 875 p.o. b.i.d. SHAUNA/MATTHEW Voice ID: [id number] Report ID: [id number]
[2021-12-13 12:39] VITALS: BP 126/59; TEMP 97.8
[2021-12-13] MEDS ORDERED: metroNIDAZOLE 500 MG TABLET PO SCH (14:00)
[2021-12-13 14:04] VITALS: O2SAT 96
[2021-12-13] MEDS ORDERED: CIPROFLOXACIN HCL 500 MG TAB PO SCH (21:00)
== END 2021-12-13 12:30 | disposition home or self-care (01) ==
LOC: ER 13:22 → ERHOLD 14:32 → 2ND 16:27
PROVIDERS: ADMIT Surgery; ATTEND Surgery
PROC: 0DTJ4ZZ Resection of Appendix, Percutaneous Endoscopic Approach (ICD-10-PCS; principal; 2021-12-12 15:30)
DX: K35.80 Unspecified acute appendicitis (principal); Z20.822 Contact with and (suspected) exposure to COVID-19
CPT/HCPCS: 36415; 80048; 80076; 83690; 85025; 88304; 94010; 96360; 99285; G0378; J0744; J1170; J2175; J2250; J2405; J2704; J2710; J3010; J7030; J7040; Q4172; U0003